=== PATIENT | female | born 1930 | race Caucasian/White ===

== ENCOUNTER 2017-09-03 16:41 | Inpatient (IN) ==
--- NOTE | 2017-09-03 17:14 | Emergency Department Report ---
General Adult HPI - General Chief complaint: Dizziness Stated complaint: facial drooping, slurred speach Time Seen by Provider: 09/03/17 17:05 Source: patient Mode of arrival: ambulatory Limitations: no limitations - History of Present Illness HPI narrative: 86-year-old female presents to the emergency department with a chief complaint of left-sided facial droop which began late yesterday per MD RN. Patient has also been feeling off balance for the past 2 days. She denies any pain or discomfort. She was at [facility] when her symptoms began. Symptoms have been persistent in nature since onset. No other complaints or associated symptoms. She does not note any exacerbating or remitting factors. Family arrives at bedside and also notes left-sided facial droop which is different from the patient's baseline health status. - Related Data Home Medications Medication Instructions Recorded Confirmed ALPRAZolam [Xanax] 0.5 mg PO HS PRN 09/03/17 09/03/17 Acetaminophen 650 mg PO QID 09/03/17 09/03/17 Amoxicillin 500 mg PO Q8H PRN 09/03/17 09/03/17 Aspirin 325 mg PO DAILY 09/03/17 09/03/17 Carbidopa/Levodopa 25/100 MG 1 tab PO HS 09/03/17 09/03/17 [Sinemet] Carboxymethyl/Glycerin/Poly80 1 drop EACH EYE BID 09/03/17 09/03/17 [Refresh Optive Advanced Drops] Carvedilol [Coreg] 3.125 mg PO BIDWM 09/03/17 09/03/17 Diclofenac [Voltaren] 1 applicatio TP BID 09/03/17 09/03/17 Docusate Sodium [Colace] 100 mg PO BID PRN 09/03/17 09/03/17 Famotidine [Pepcid] 20 mg PO BID 09/03/17 09/03/17 Fluoxetine HCl [Prozac] 40 mg PO DAILY 09/03/17 09/03/17 Furosemide [Lasix] 20 mg PO DAILY 09/03/17 09/03/17 Levothyroxine Tab [Synthroid] 50 mcg PO ACB 09/03/17 09/03/17 Losartan Potassium [Cozaar] 25 mg PO BID 09/03/17 09/03/17 Meclizine [Antivert] 12.5 mg PO DAILY 09/03/17 09/03/17 Meclizine [Antivert] 12.5 mg PO Q6H PRN 09/03/17 09/03/17 Melatonin 3 mg PO HS 09/03/17 09/03/17 Meloxicam [Mobic] 7.5 mg PO DAILY 09/03/17 09/03/17 Memantine [Namenda] 10 mg PO BID 09/03/17 09/03/17 Nystatin Powder [Mycostatin] 1 applicatio TP TID 09/03/17 09/03/17 Potassium Chloride [Klor-Con M10] 10 meq PO WB 09/03/17 09/03/17 Tramadol HCl [Ultram] 12.5 mg PO BID 09/03/17 09/03/17 Tramadol [Ultram] 25 mg PO TID PRN 09/03/17 09/03/17 Vit C/E/Zn/Coppr/Lutein/Zeaxan 1 cap PO BID 09/03/17 09/03/17 [Preservision Areds 2 Softgel] Allergies Allergy/AdvReac Type Severity Reaction Status Date / Time CRYSTAL Inhibitors Allergy Verified 09/03/17 17:02 Review of Systems Constitutional: Denies: fever, chills Eyes: Denies: eye pain, vision change ENT: Denies: ear pain, throat pain Cardiovascular: Denies: chest pain, palpitations Respiratory: Denies: cough, dyspnea Gastrointestinal: Denies: abdominal pain, nausea, vomiting, diarrhea Genitourinary: Denies: urgency, dysuria Musculoskeletal: Denies: back pain, arthralgia Integumentary: Denies: erythema, rash Neurological: Denies: headache, numbness Psychiatric: Denies: anxiety, depression Endocrine: Denies: fatigue, heat or cold intolerance Hematological/Lymphatic: Denies: easy bleeding, lymphadenopathy Allergic/Immunologic: Denies: facial swelling, urticaria PFSH Patient Stated Medical History Dementia Yes Macular Degeneration Yes Hypertension Yes Gastroesophageal Reflux Yes Disease Clinic Medical History Osteoarthritis of right knee (Chronic Medical) Chronic insomnia (Chronic Medical) Urinary tract infection without hematuria (Chronic Medical) Mild dementia (Chronic Medical) Acute confusion (Acute Medical) B12 deficiency (Chronic Medical) Depression (Chronic Medical) GERD (gastroesophageal reflux disease) (Chronic Medical) Hypertension, benign (Chronic Medical) Hypothyroidism (Chronic Medical) Lumbar disc disease (Chronic Medical) Macular degeneration (Chronic Medical) PAD (peripheral artery disease) (Chronic Medical) Right sided sciatica (Chronic Medical) Spinal stenosis (Chronic Medical) Type 2 diabetes mellitus (Chronic Medical) Surgical History: Orthopedic surgery. Family History: Family History Father , 89 Hip fracture Mother , 51 Cancer Brother Leukemia Maternal Aunt Type 2 diabetes mellitus Maternal Uncle Type 2 diabetes mellitus Daughter Breast cancer - Social History Smoking status: Never smoker Substance use type: does not use Alcohol intake frequency: does not drink Physical Exam - Limitations Limitations: no limitations - General General appearance: alert, in no apparent distress - Normal Exams: Head:: Normocephalic without trauma Eyes:: Pupils are PERRLA w/ EOMI, No scleral icterus, irritation, or foreign bodies noted ENMT:: No facial trauma, nasal exudates, pharyngeal erythema, or exudates are noted Dental: No fractured, loose, or missing teeth noted Neck:: Full range of motion, without adenopathy, JVD, bruits or thyromegaly Chest/Respirations:: Clear all le, with good airflow, and symmetry bilaterally Cardiovascular:: Regular rate and rhythm, without murmur or gallop, Pulses 2+ all extremities, capillary refill, <2 seconds all extremities Abdomen:: Bowel sounds positive, soft, non-tender, non-distended, no hepatosplenomegaly, masses or bruits noted Lymphatic:: No lymphadenopathy, or lymphedema noted Musculoskeletal:: No tenderness, or deformity noted, good range of motion, all extremities Integumentary:: No rashes, hives, or bruising noted, hair and nails, without abnormality Neurological:: Patient is alert (Alert and oriented x 3. CN 2-12 intact except for mild L facial droop. Sensation intact. Normal strength. Normal motor. Normal coordination. Normal speech. Absent Babinski bilaterally. Reflexes 2/ 4 in all extremities. Gait slow. ), and oriented, cranial nerves, motor/sensory /cerebellar, exams w/o gross deficits, to observation Psychiatric:: Patient exhibits, appropriate attention, emotion and affect Course Vital Signs Temperature 97.9 F 09/03/17 16:45 Pulse Rate 67 09/03/17 16:45 Respiratory Rate 18 09/03/17 16:45 Blood Pressure 165/92 H 09/03/17 16:45 Pulse Oximetry 94 09/03/17 16:45 Temperature 97.6 F 09/04/17 15:22 Pulse Rate 67 09/04/17 16:00 Respiratory Rate 18 09/04/17 15:22 Blood Pressure 155/74 H 09/04/17 15:22 Pulse Oximetry 96 09/04/17 15:22 Medical Decision Making - MDM Narrative Medical decision making narrative: Labs / imaging were discussed in detail with the patient and family and questions are answered. Family arrives at bedside and facial droop on the left is noted by family as a change from patient's baseline health. Patient has taken 325 mg of aspirin by mouth 1 prior to arrival to the emergency department today. She was given 500 mL normal saline intravenously. Patient is discussed with Dr. Ghotra and will be admitted to rule out CVA with left- sided facial droop. Patient and family are in agreement with the current plan of management. Patient is admitted to the hospital in improved condition. No further orders from accepting physician who is in agreement with the current plan of management. Further antiplatelet therapy will be left to the discretion of the hospitalist at this time. Patient is admitted to the service of the hospitalist in improved condition. Patient was started on Plavix 300 mg po x 1 and Simvastatin 40 mg po x 1 at the request of Dr. Baldev Sorenson the hospitalist who accepted the patient for admission to the hospital as Dr. Ghotra was going off shift. She was not a candidate for TPA as symptoms began outside the window for therapy and her NIH -1. - Differential Diagnosis CVA, TIA, UTI, Dehydration, Metabolic Disorder - Lab Data Result diagrams: 09/04/17 04:21 09/04/17 04:21 Lab Results 09/03/17 09/03/17 09/03/17 Range/Units 17:24 17:29 17:29 WBC 8.0 (4.5-11.0) T/MM3 RBC 4.51 (4.00-5.20) M/MM3 Hgb 13.5 (12-16) GM/DL Hct 42.0 (36-46) % MCV 93.1 (80-100) UM3 MCH 29.9 (26-34) UUG MCHC 32.1 (31-37) GM/DL RDW Std Deviation 46.2 (36.9-50.2) FL Plt Count 207 (130-400) T/MM3 MPV 10.2 (9.4-12.4) UM3 Immature Gran % (Auto) 0.4 (0.0-0.5) % Neut % (Auto) 57.9 (33-66) % Lymph % (Auto) 31.0 (23-45) % [place] % (Auto) 8.1 (0-9.0) % Eos % (Auto) 1.8 (0-4) % Baso % (Auto) 0.8 (0-2) % Neut # (Auto) 4.6 (1.8-7.7) T/MM3 Lymph # (Auto) 2.5 (1-4.8) T/MM3 [place] # (Auto) 0.7 (0-0.8) T/MM3 Eos # (Auto) 0.1 (0-0.5) T/MM3 Baso # (Auto) 0.1 (0-0.2) T/MM3 Abs Immat Gran (auto) 0.03 (0.00-0.03) T/MM3 INR (0.99-1.21) APTT (24-36) SEC Turbidity < 20 (0-20) Sodium 142 (134-144) MEQ/L Potassium 4.0 (3.6-5) MEQ/L Chloride 107 (98-107) MEQ/L Carbon Dioxide 26 (22-30) MEQ/L Anion Gap 9 (5-15) MEQ/L BUN 19.0 H (7-17) MG/DL Creatinine 0.8 (0.7-1.2) MG/DL GFR Calculation 68 BUN/Creatinine Ratio 24 (6-26) RATIO Glucose 94 (65-110) MG/DL Hemoglobin A1c 5.3 (4.0-5.7) % Calculated Osmolality 275 (261-280) MOSM/KG Calcium 9.3 (8.4-10.2) MG/DL Total Bilirubin 0.30 (0.20-1.30) MG/DL Icterus Index < 2 (0-7) AST 22 (14-36) U/L ALT 31 (9-52) U/L Alkaline Phosphatase 77 (38-126) U/L Troponin I < 0.012 (0-0.12) ng/ml Total Protein 7.2 (6.3-8.2) G/DL Albumin 4.2 (3.5-5.0) G/DL Globulin 3.0 (2.4-3.6) G/DL Albumin/Globulin Ratio 1.4 (1.1-2.2) RATIO Triglycerides 249 H (35-135) MG/DL Cholesterol 179 (132-199) MG/DL LDL Cholesterol, Calc 90.2 (66-159) VLDL Cholesterol 49.8 H (0-28) MG/DL HDL Cholesterol 39 L (40-60) MG/DL Cholesterol/HDL Ratio 4.6 H (0-4.0) RATIO Specimen Hemolysis < 15 (0-25) Ur Collection Type Urine Color (YELLOW) Urine Clarity Urine pH (5.0-8.0) Ur Specific [place] (1.015-1.025) Urine Protein (NEGATIVE) Urine Glucose (UA) (NEGATIVE) Urine Ketones (NEGATIVE) Urine Occult Blood (NEGATIVE) Urine Nitrate (NEGATIVE) Urine Bilirubin (NEGATIVE) Urine Urobilinogen (NORMAL) EU/DL Ur Leukocyte Esterase (NEGATIVE) Urinalysis Comment 09/03/17 09/03/17 Range/Units 17:29 18:12 WBC (4.5-11.0) T/MM3 RBC (4.00-5.20) M/MM3 Hgb (12-16) GM/DL Hct (36-46) % MCV (80-100) UM3 MCH (26-34) UUG MCHC (31-37) GM/DL RDW Std Deviation (36.9-50.2) FL Plt Count (130-400) T/MM3 MPV (9.4-12.4) UM3 Immature Gran % (Auto) (0.0-0.5) % Neut % (Auto) (33-66) % Lymph % (Auto) (23-45) % [place] % (Auto) (0-9.0) % Eos % (Auto) (0-4) % Baso % (Auto) (0-2) % Neut # (Auto) (1.8-7.7) T/MM3 Lymph # (Auto) (1-4.8) T/MM3 [place] # (Auto) (0-0.8) T/MM3 Eos # (Auto) (0-0.5) T/MM3 Baso # (Auto) (0-0.2) T/MM3 Abs Immat Gran (auto) (0.00-0.03) T/MM3 INR 0.98 L (0.99-1.21) APTT 29.4 (24-36) SEC Turbidity (0-20) Sodium (134-144) MEQ/L Potassium (3.6-5) MEQ/L Chloride (98-107) MEQ/L Carbon Dioxide (22-30) MEQ/L Anion Gap (5-15) MEQ/L BUN (7-17) MG/DL Creatinine (0.7-1.2) MG/DL GFR Calculation BUN/Creatinine Ratio (6-26) RATIO Glucose (65-110) MG/DL Hemoglobin A1c (4.0-5.7) % Calculated Osmolality (261-280) MOSM/KG Calcium (8.4-10.2) MG/DL Total Bilirubin (0.20-1.30) MG/DL Icterus Index (0-7) AST (14-36) U/L ALT (9-52) U/L Alkaline Phosphatase (38-126) U/L Troponin I (0-0.12) ng/ml Total Protein (6.3-8.2) G/DL Albumin (3.5-5.0) G/DL Globulin (2.4-3.6) G/DL Albumin/Globulin Ratio (1.1-2.2) RATIO Triglycerides (35-135) MG/DL Cholesterol (132-199) MG/DL LDL Cholesterol, Calc (66-159) VLDL Cholesterol (0-28) MG/DL HDL Cholesterol (40-60) MG/DL Cholesterol/HDL Ratio (0-4.0) RATIO Specimen Hemolysis (0-25) Ur Collection Type Urine, clean catch Urine Color Yellow (YELLOW) Urine Clarity Clear Urine pH 6.0 (5.0-8.0) Ur Specific [place] 1.020 (1.015-1.025) Urine Protein Negative (NEGATIVE) Urine Glucose (UA) Negative (NEGATIVE) Urine Ketones Trace A (NEGATIVE) Urine Occult Blood Negative (NEGATIVE) Urine Nitrate Negative (NEGATIVE) Urine Bilirubin Negative (NEGATIVE) Urine Urobilinogen 0.2 (NORMAL) EU/DL Ur Leukocyte Esterase Negative (NEGATIVE) Urinalysis Comment Microscopic not ind. - Radiology Data CXR: No acute processes. CT Head: No acute processes. - EKG Data EKG #1 EKG results narrative: Sinus rhythm. 71 bpm. No STEMI. Disposition Clinical Impression: Facial droop Disposition: 02 To [facility] [place] Acute Care Condition: Improved Time of Disposition: 18:00 (Admit. Dr. Shin. ) - Seen By: physician
[2017-09-03] MEDS: SALINE FLUSH 10ml SYRINGE IVF PRN (17:33)
[2017-09-03] MEDS ORDERED: NS 1,000 ML IV ONE (18:21)
[2017-09-03] MEDS ORDERED: CLOPIDOGREL 75 MG TABLET PO ONE (18:45)
[2017-09-03] MEDS ORDERED: SIMVASTATIN 40 MG TABLET PO ONE (18:47)
[2017-09-03] MEDS ORDERED: LABETALOL 20mg/4ml INJECTION IVP PRN (20:24)
[2017-09-03] MEDS ORDERED: ACETAMINOPHEN 160mg/5ml ORAL LIQUID PO PRN (20:24)
[2017-09-03] MEDS ORDERED: INSULIN ASPART 100unit/ml INJECTION SQ PRN (20:24)
[2017-09-03] MEDS ORDERED: GLUCOSE ORAL GEL 40% 37.5gm PO PRN (20:24)
[2017-09-03] MEDS ORDERED: ALPRAZolam 0.5 MG TABLET PO PRN (20:24)
[2017-09-03] MEDS ORDERED: DEXTROSE 50% SYRINGE 50ml (1 AMP) IVP PRN (20:24)
[2017-09-03] MEDS: FAMOTIDINE 20 MG TABLET PO SCH (22:26)
--- NOTE | 2017-09-03 23:47 | History & Physical Report ---
History of Present Illness Date: 09/04/17 Chief complaint: left facial weakness HPI: This is a 86 y/o female who lives at an assisted living setting in [facility]. The patient was noted today to have left facial weakness and onset of balance problems. The patient sx started maybe around 3:30 pm today. The local MD r/c that the pateint be transported to the ED for further evaluation. The patient has a history of Parkinsons disease and mild dementia. The patient also is a diabetic. In the ED the patient does have mild left sided facial weakness. The patient apparently has been having some difficulty swallowing as well since yesterday. The neruo evaluation CT head was neg for acute CVA. An MRI of the head done 03/01 demonstrated only atrophy. The patient sx are reasonably stable. She does take a baby aspirin. The patient will be admitted for further neruo evaluation. Review of Systems Review of systems: no headache, no change in nvisoin, some difficulty swallowng, no neck or jaw pain, no chest pain, no cough, no congestion, no fever, chills or sweats, no abdomen pain, no nausea or vomiting, no change in bm, no urine sx, no other focal concerns except for the facial weakness and dsyphagia. Patient is right handed Past Medical History Clinic Medical History Osteoarthritis of right knee (Chronic Medical) Chronic insomnia (Chronic Medical) Urinary tract infection without hematuria (Chronic Medical) Mild dementia (Chronic Medical) Acute confusion (Acute Medical) B12 deficiency (Chronic Medical) Depression (Chronic Medical) GERD (gastroesophageal reflux disease) (Chronic Medical) Hypertension, benign (Chronic Medical) Hypothyroidism (Chronic Medical) Lumbar disc disease (Chronic Medical) Macular degeneration (Chronic Medical) PAD (peripheral artery disease) (Chronic Medical) Right sided sciatica (Chronic Medical) Spinal stenosis (Chronic Medical) Type 2 diabetes mellitus (Chronic Medical) Surgical History: Orthopedic surgery. Family History: Family History Father , 89 Hip fracture Mother , 51 Cancer Brother Leukemia Maternal Aunt Type 2 diabetes mellitus Maternal Uncle Type 2 diabetes mellitus Daughter Breast cancer Family History Updates: see above - Social History Smoking status: Never smoker Substance use type: does not use Alcohol intake frequency: does not drink Housing: assisted living facility Household members: none Current occupational status: retired Current occupational exposures/hazards: No Medications Home Medications Medication Instructions Recorded Confirmed Type ALPRAZolam [Xanax] 0.5 mg PO HS PRN 09/03/17 09/03/17 History Acetaminophen 650 mg PO QID 09/03/17 09/03/17 History Amoxicillin 500 mg PO Q8H PRN 09/03/17 09/03/17 History Aspirin 325 mg PO DAILY 09/03/17 09/03/17 History Carbidopa/Levodopa 25/100 MG 1 tab PO HS 09/03/17 09/03/17 History [Sinemet] Carboxymethyl/Glycerin/Poly80 1 drop EACH EYE BID 09/03/17 09/03/17 History [Refresh Optive Advanced Drops] Carvedilol [Coreg] 3.125 mg PO BIDWM 09/03/17 09/03/17 History Diclofenac [Voltaren] 1 applicatio TP BID 09/03/17 09/03/17 History Docusate Sodium [Colace] 100 mg PO BID PRN 09/03/17 09/03/17 History Famotidine [Pepcid] 20 mg PO BID 09/03/17 09/03/17 History Fluoxetine HCl [Prozac] 40 mg PO DAILY 09/03/17 09/03/17 History Furosemide [Lasix] 20 mg PO DAILY 09/03/17 09/03/17 History Levothyroxine Tab [Synthroid] 50 mcg PO ACB 09/03/17 09/03/17 History Losartan Potassium [Cozaar] 25 mg PO BID 09/03/17 09/03/17 History Meclizine [Antivert] 12.5 mg PO DAILY 09/03/17 09/03/17 History Meclizine [Antivert] 12.5 mg PO Q6H PRN 09/03/17 09/03/17 History Melatonin 3 mg PO HS 09/03/17 09/03/17 History Meloxicam [Mobic] 7.5 mg PO DAILY 09/03/17 09/03/17 History Memantine [Namenda] 10 mg PO BID 09/03/17 09/03/17 History Nystatin Powder [Mycostatin] 1 applicatio TP TID 09/03/17 09/03/17 History Potassium Chloride [Klor-Con M10] 10 meq PO WB 09/03/17 09/03/17 History Tramadol HCl [Ultram] 12.5 mg PO BID 09/03/17 09/03/17 History Tramadol [Ultram] 25 mg PO TID PRN 09/03/17 09/03/17 History Vit C/E/Zn/Coppr/Lutein/Zeaxan 1 cap PO BID 09/03/17 09/03/17 History [Preservision Areds 2 Softgel] Allergies Allergy/AdvReac Type Severity Reaction Status Date / Time CRYSTAL Inhibitors Allergy Verified 09/03/17 17:02 Exam Vital Signs: Temperature 97.9 F 09/03/17 16:45 Pulse Rate 70 09/03/17 19:35 Respiratory Rate 23 09/03/17 19:35 Blood Pressure 167/75 H 09/03/17 18:18 Pulse Oximetry 96 09/03/17 19:35 Telemetry Rhythm: Sinus Rhythm - Constitutional Present: no acute distress, well nourished, well developed, cooperative - Routine HEENT Exam Head: Present: normocephalic, atraumatic Eye: Present: EOMI, PERRL, conjunctivae pink ENT: Present: mucous membranes moist Comments: mild left sided weakness noted - Routine Respiratory Exam Present: CTA bilaterally - Routine Cardiovascular Exam Present: RRR, no murmur - Routine Abdominal Exam Present: soft, normoactive bowel sounds, non distended, non tender - Routine Extremities Exam Present: no edema, full ROM - Routine Back/Spine/Pelvis Exam Back/Spine: Present: full ROM - Routine Skin Exam Present: intact - Routine Neurological Exam Present: oriented X3, sensory deficit left sided facialweakness. visual examination normal, strength sl weak left upper extremity and left lower extremity. sensory intact. not able to check proprioception Results - Labs CBC & Chem 7: 09/04/17 04:21 09/04/17 04:21 - Imaging and Cardiology CT scan - head Additional comments: no acute process Assessment and Plan (1) CVA (cerebral vascular accident) Current visit: Yes Status: Acute (2) Mild dementia Current visit: No Status: Chronic (3) DM type 2 (diabetes mellitus, type 2) Current visit: Yes Status: Acute (4) Hypothyroid Current visit: Yes Status: Acute (5) GERD (gastroesophageal reflux disease) Current visit: Yes Status: Acute Assessment and Plan: 1. acute CVA acute POA: no doubt left sided facial weakness and left sided weakenss. MR of head, echo, tele, lipid, a1c, carotid US, aspirin, plavix, statin, 2. DM2 chronic POA: correctional plan 3. HTN chronic POA: permissive HTN 4. parkinson's ds: continue sinemet 5. mild demntial type unspecified chronic POA: to be aware of namemda 6. hypothroid chroinc POA; synthroid, check TSH 7. DVT ppx; SCd, lovenox DVT Prophylaxis: SCD's, Lovenox Resuscitation Status: Do Not Resuscitate - Time spent with patient Time with patient PN: 50 minutes - Physician Narrative Physician: Crystal Ghotra MD Narrative: Date: 09/04/2017 Time: 2:[address] Ghotra I've seen and examined the patient and reviewed the chart. I agree with the H&P above. Please see my additions below. Chief complaint is slurred speech and left facial droop History of present illness: Patient was seen earlier this afternoon. Her son DIANE Davies was in the room with her during the exam. The patient has difficulty with memory. She is not a good historian. Per her son, she was noted to have left facial droop and slurred speech yesterday and was brought into the emergency room. Here she had a CT head that showed no acute findings. The patient was admitted and started on Plavix. Currently, the patient's speech is fluent. She does have a little bit of left facial droop. Her son states her speech is back to normal. He states she has a little bit of left facial droop now but it is not as bad as yesterday. He states that when he was with her earlier this morning she was doing well and then she had about a 30 minute episode where she had more facial droop and slurred speech but it has improved at this time. The patient was evaluated by the physical therapist and occupational therapist who both recommended returning to her previous assisted living with home health. The patient was seen by speech therapy who recommended ground meat with gravy but otherwise regular diet and normal liquids. Currently the patient denies pain anywhere. She specifically denies headache or chest pain. She denies any palpitations. She denies any shortness of breath. She denies nausea or vomiting. She is eating and drinking well. She is urinating without difficulties. She has some chronic right leg pain that is unchanged. Review of systems is difficult to obtain as the patient has poor memory. Past medical history is reviewed and unchanged from above. Family history is reviewed Social history is reviewed. She lives in assisted living [facility]. Her son Samson his DPOA. The patient is DO NOT RESUSCITATE Medications are reviewed Allergies are reviewed Physical exam Afebrile, heart rate 68, pulse 16, blood pressure 171/72, O2 sat 94% on room air Gen. this is a well-developed well-nourished very pleasant female in no acute distress. She has mild to moderate memory decline. HEENT reveals sclerae to be anicteric, pupils are equal round and reactive, extraocular movements are intact. Oropharynx is moist. Neck is supple and carotids are silent. No JVD. Chest is clear to auscultation. Cardiovascular reveals a regular rate and rhythm without murmur. Abdomen is soft and nontender. Extremities are free of edema. Skin is warm and dry and without rashes. Psychiatric reveals a pleasant patient without anxiety. Affect is normal. Neurologic reveals cranial nerves II through XII to be intact other than some mild left facial droop. She has minimal slurred speech. Motor strength is 5 over 5 and equal in the upper and lower extremities. CT head yesterday revealed mild cortical atrophy. No evidence for acute cortical infarct, intracranial hemorrhage, or mass Chest x-ray yesterday showed no acute process MRI brain today read by [facility] shows a small focal acute/subacute infarct in the right brainstem. No intracranial hemorrhage or mass effect. Probable small meningioma in the left lateral vertex. Carotid Dopplers revealed no hemodynamically significant carotid stenosis Impression Acute/subacute infarct in the right brainstem without mass effect with resultant left facial droop and mild slurred speech Mild elevated blood pressure with history of hypertension Dementia Parkinson's disease Hypothyroidism GERD Plan The patient failed aspirin therapy. Will continue Plavix which was initiated yesterday. We'll start statin for hyperlipidemia and recent stroke Continue telemetry Neuro checks every 4 hours-call with changes. Await echocardiogram Up in chair for meals and walking halls with assist Possible discharge in 1-2 days if the patient is stable. Paperwork from the correction show her son Samson his DPOA and he does confirm this. Paperwork also shows that the patient is DO NOT RESUSCITATE and Samson confirms this as well. We'll change to DO NOT RESUSCITATE status on the computer. Discussed findings and plans at length with the patient's son. Discussed with case management. Hospital Course Summary Disclaimer: The visit summary below is not to be considered part of the above Progress Note.
[2017-09-04] MEDS: LEVOTHYROXINE 50 MCG TABLET PO SCH (06:11)
[2017-09-04 07:08] VITALS: BMI 34.4
[2017-09-04] MEDS ORDERED: SALINE FLUSH 10ml SYRINGE ONE (08:55)
[2017-09-04] MEDS ORDERED: ASPIRIN 325 MG TABLET PO SCH (09:00)
[2017-09-04] MEDS: FAMOTIDINE 20 MG TABLET PO SCH ×2 (10:34→20:05)
[2017-09-04] MEDS: CLOPIDOGREL 75 MG TABLET PO SCH (10:34)
[2017-09-04] MEDS ORDERED: PNEUMOCOCCAL 13 VACCINE 0.5ml INJECTION IM ONE (12:55)
--- NOTE | 2017-09-04 13:50 | CT Scan Report ---
Indication: Dizzy PROCEDURE: CT head/brain wo con: Encounter: Initial Comparison: 11/30/2011 Findings: There is mild prominence of the ventricles and sulci compatible with cortical atrophy. There is no mass, mass effect, or midline shift. No evidence for intracranial hemorrhage. No intra or extra-axial fluid collections. No evidence for depressed skull fracture. The included portions of the sinuses are clear. 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 IMPRESSION: Mild cortical atrophy. No evidence for acute cortical infarct, intracranial hemorrhage, or mass. Preliminary report was provided by Sherwin dixon .
--- NOTE | 2017-09-04 13:55 | XRay Report ---
Indication: dizziness PROCEDURE: XR chest 1V: Encounter: Initial Comparison: None. Findings: Heart size is normal. The lungs are clear. There is no focal opacity to suggest atelectasis or pneumonia. No mediastinal or hilar adenopathy. No pleural effusion. There is mild tortuosity of the descending thoracic aorta. Trachea is midline. There is no significant degenerative changes of the thoracic spine. IMPRESSION: No acute process. .
[2017-09-04] MEDS ORDERED: PNEUMOCOCCAL VAC ADMIN CHARGE INJ ONE (14:00)
--- NOTE | 2017-09-04 14:40 | Magnetic Resonance Report ---
Indication: cva PROCEDURE: MR head/brain wo con: Encounter: Initial Comparison: None. Technique: Multiplanar, multisequence, MR imaging of the head without contrast was acquired. FINDINGS: There is moderate cortical atrophy with moderate periventricular and subcortical white matter changes most commonly associated with small vessel ischemic disease. There is a small punctate area of restricted diffusion in the right rita compatible with a small lacunar infarct. The flow voids within the basilar vessels appear well-preserved. There are no cortical areas of restricted diffusion on diffusion weighted imaging to suggest an acute infarct. There is no evidence of an intracranial mass lesion, intracranial hemorrhage, or hydrocephalus. The visualized portions of the orbits, calvarium, paranasal sinuses, and skull base demonstrate no significant abnormality. IMPRESSION: Acute lacunar infarct in the right rita. Generalized cortical atrophy with periventricular and subcortical white matter disease. .
[2017-09-04] MEDS ORDERED: DOCUSATE SODIUM 100 MG CAPSULE PO PRN (14:41)
[2017-09-04] MEDS ORDERED: TRAMADOL 50 MG TABLET PO PRN (14:41)
--- NOTE | 2017-09-04 14:44 | Ultrasound Report ---
Indication: cva PROCEDURE: US carotid doppler BI: Encounter: Initial Comparison: None. TECHNIQUE: Nieves-scale, color flow, and spectral pulsed Doppler imaging of the carotid and vertebral arteries of both sides of the neck was performed with segmental recordings of velocity spectra. FINDINGS: There is moderate plaque in the bulb region bilaterally. Longitudinal color flow images reveal all vessels to be patent with a normal flow direction. The velocity spectra are of normal shape without flow acceleration or spectral broadening. The following peak systolic and end-diastolic velocities were measured (units given in cm/s): Right Common Carotid: 81 Prox Internal Car: 83/19 Mid Internal Carotid: 87/21 Dist Internal Carotid: 78/15 External Carotid: 98 Vertebral Artery: 49 Systolic Ratio: 1.0 Left Common Carotid: 101 Prox Internal Car: 62/9.6 Mid Internal Carotid: 84/17 Dist Internal Carotid: 66/18 External Carotid: 77 Vertebral Artery: 53 Systolic Ratio: 0.8 IMPRESSION: Normal to mild internal carotid artery stenosis, bilaterally, with estimated percent stenosis between 0% and 50% using NASCET criteria adapted to duplex ultrasound. Bilateral patent antegrade vertebral arteries. .
[2017-09-04] MEDS: FLUoxetine 20 MG CAPSULE PO SCH (15:36)
[2017-09-04] MEDS: CARVEDILOL 3.125 MG TABLET PO SCH (18:06)
[2017-09-04] MEDS: ACETAMINOPHEN 325 MG TABLET PO SCH ×2 (18:07→20:05)
--- NOTE | 2017-09-04 18:35 | Echocardiogram ---
DATE OF PROCEDURE 09/04/2017 This is a two-dimensional echo with spectral Doppler, color flow and bubble stud. It was obtained in a patient with TIA and stroke. Left atrial dimension is at the upper limits of normal. Left ventricular end- diastolic dimension is normal. Left ventricular wall thickness is normal. LV systolic function is normal with ejection fraction of 65%. Right atrium is normal. Right ventricle is normal. Aortic root dimension is normal. Mitral valve annulus is calcified. Mitral valve leaflets are sclerotic with mild mitral regurgitation. Aortic valve shows fibrocalcific changes with no stenosis or insufficiency. Tricuspid valve shows mild tricuspid regurgitation with mild pulmonary hypertension with estimated pulmonary artery systolic pressure of 35. Pulmonary valve shows mild pulmonary insufficiency. There is no pericardial effusion. Grossly, there is no intracardiac thrombus or mass. Agitated saline was injected which showed no evidence of cuehh-xe-uaej shunt. IMPRESSION 1. Grossly, no intracardiac thrombus or mass. 2. No evidence of qymfv-bc-ldqh shunt using agitated saline. 3. Normal LV systolic function with ejection fraction of about 65%. 4. Mitral annulus calcification and mitral sclerosis with mild mitral regurgitation. 5. Aortic sclerosis. 6. Mild tricuspid regurgitation with mild pulmonary hypertension with estimated pulmonary artery systolic pressure of 35. 7. Mild pulmonary insufficiency. MTDD
[2017-09-04] MEDS: REFRESH CLASSIC Eye Drops 0.4ml EACH EYE SCH (20:04)
[2017-09-04] MEDS: MELATONIN 1 MG TABLET PO SCH (20:05)
[2017-09-04] MEDS: MEMANTINE 10 MG TABLET PO SCH (20:05)
[2017-09-04] MEDS: SIMVASTATIN 40 MG TABLET PO SCH (20:05)
[2017-09-04] MEDS: TRAMADOL 50 MG TABLET PO SCH (20:06)
[2017-09-05] MEDS: LEVOTHYROXINE 50 MCG TABLET PO SCH (05:30)
[2017-09-05] MEDS: REFRESH CLASSIC Eye Drops 0.4ml EACH EYE SCH ×2 (09:47→21:03)
[2017-09-05] MEDS: MEMANTINE 10 MG TABLET PO SCH ×2 (09:47→21:03)
[2017-09-05] MEDS: CARVEDILOL 3.125 MG TABLET PO SCH (09:48)
[2017-09-05] MEDS: ACETAMINOPHEN 325 MG TABLET PO SCH ×4 (09:48→21:03)
[2017-09-05] MEDS: TRAMADOL 50 MG TABLET PO SCH ×2 (09:48→21:04)
[2017-09-05] MEDS: FUROSEMIDE 20 MG TABLET PO SCH (09:48)
[2017-09-05] MEDS: FLUoxetine 20 MG CAPSULE PO SCH (09:48)
[2017-09-05] MEDS: CLOPIDOGREL 75 MG TABLET PO SCH (09:48)
[2017-09-05] MEDS: FAMOTIDINE 20 MG TABLET PO SCH ×2 (09:49→21:03)
[2017-09-05] MEDS: ENOXAPARIN 40 MG/0.4 ML INJECTION SQ SCH (09:49)
--- NOTE | 2017-09-05 12:29 | Progress Note ---
- Date 09/05/17 Subjective: Jayden is seen today in follow up. Reports feeling very well. Minimal left sided weakness. Denies difficulty with speech or swallow. No facial droop. Denies cough, but does reports some nasal congestion and drainage. Denies fever. Does not feel unwell. Onset of URI sx were last night. No other acute c/o reported. Objective Vital signs: Temperature 98.4 F 09/05/17 08:00 Pulse Rate 69 09/05/17 08:00 Respiratory Rate 18 09/05/17 08:00 Blood Pressure 160/72 H 09/05/17 08:00 Pulse Oximetry 95 09/05/17 08:00 Rhythm: Normal Sinus Rhythm, Bundle Branch Block Height/Weight/BMI: Height 1.6 m Weight 87.9 kg Body Mass Index 34.4 - Constitutional Present: no acute distress, well developed, obese, cooperative - Routine HEENT Exam Head: Present: normocephalic, atraumatic Eye: Present: EOMI, PERRL, normal accommodation ENT: Present: mucous membranes moist - Routine Respiratory Exam Present: decreased breath sounds, CTA bilaterally. Absent: dyspnea, rales, rhonchi, wheezes - Routine Cardiovascular Exam Present: RRR, S1, S2, no murmur - Routine Abdominal Exam Present: soft, normoactive bowel sounds, non distended, non tender - Routine Extremities Exam Present: no edema, non tender - Routine Musculoskeletal Exam Musculoskeletal: Present: no clubbing or cyanosis, moving extremities well - Routine Skin Exam Present: intact, dry, warm - Routine Neurological Exam Present: alert, oriented X3, moving all extremities. Absent: sensory deficit Inpatient Care Manager Rn are fairly equal. No obvious facial droop. No speech deficits. - Routine Psychiatric Exam Present: normal affect, cooperative, good insight Results - Labs CBC & Chem 7: 09/04/17 04:21 09/04/17 04:21 - Echocardiogram Echocardiogram: IMPRESSION 1. Grossly, no intracardiac thrombus or mass. 2. No evidence of hzqjy-gt-exhn shunt using agitated saline. 3. Normal LV systolic function with ejection fraction of about 65%. 4. Mitral annulus calcification and mitral sclerosis with mild mitral regurgitation. 5. Aortic sclerosis. 6. Mild tricuspid regurgitation with mild pulmonary hypertension with estimated pulmonary artery systolic pressure of 35. 7. Mild pulmonary insufficiency. - Impressions Carotid doppler IMPRESSION: Normal to mild internal carotid artery stenosis, bilaterally, with estimated percent stenosis between 0% and 50% using NASCET criteria adapted to duplex ultrasound. Bilateral patent antegrade vertebral arteries. . - Imaging and Cardiology MRI - head Additional comments: MRI IMPRESSION: Acute lacunar infarct in the right rita. Generalized cortical atrophy with periventricular and subcortical white matter disease. . Assessment and Plan (1) Mild dementia Current visit: No Status: Chronic (2) CVA (cerebral vascular accident) Current visit: Yes Status: Acute (3) Hypothyroid Current visit: Yes Status: Acute (4) GERD (gastroesophageal reflux disease) Current visit: Yes Status: Acute Assessment and Plan: Impression: Acute Lacunar Infarct HTN Parkinson's Dz. Mild Dementia Hypothyroid Hyperlipidemia Plan: 09/05/17 MRI shows small lacunar infarct. She was on Full Strength ASA at home. Changed to PO plavix. Continue Zocor for HLD. She has been seen by PT/OT/ST with [facility] Patient does have some mild nasal congestion- no cough or fever. Given high prevalence of influenza, will assess a rapid swab. If sx. progress, will need to get resp. viral PCR. swab. BP is a bit elevated- will mildly increase Coreg. Avoid excessive lowering. BG remains well controlled on current. A1c 5.3. No diagnosis of DM2 per prior progress notes. Continue supportive care. Potential DC back to [place] on Wednesday. 09/05/2017-2:30 PM-I reviewed this chart, the patient history, and the CULINARY CHEF's/PA 's documented findings as above. We discussed and formulated the assessment and plan as above with the additions below.-Dr. Ghotra Patient is seen this afternoon in her room accompanied by her son. She states she has some phlegm in her throat but otherwise feels okay. She felt tired when up and walking in the hallway with the nurse. She feels like she is talking okay and swallowing okay. Her son has not noticed any recurrence of slurred speech. She did have slurred speech on admission that resolved and then came again yesterday morning and resolved. She denies having any cough but just has phlegm in her throat. She denies any sore throat or runny nose. She denies any shortness of breath or pain. On exam she is alert and in no acute distress. HEENT reveals sclerae to be anicteric and pupils are equal. Oropharynx is moist. Neck is supple. Chest is clear to auscultation. Cardiovascular reveals a regular rate and rhythm. Abdomen is soft and nontender. Extremities are free of edema. Echocardiogram reveals no significant abnormalities. Telemetry shows sinus rhythm without ectopy Assessment and plan Acute lacunar infarct. Treat with Plavix and statin. Agree with increase of Coreg. Consider restarting her usual blood pressure medication tomorrow. Probable dismissal tomorrow back to assisted living with home health for PT and OT, as long she does not have any recurrence of symptoms. Regarding her phlegm in her throat, will give guaifenesin. Influenza A and B PCR testing was negative. The patient's son was here and updated. DVT Prophylaxis: Lovenox GI Prophylaxis: other (Famotidine) Resuscitation Status: Do Not Resuscitate - Physician Narrative Physician: Crystal Ghotra MD Narrative: Date: 09/05/17 Time: 1225 Hospital Course Summary Disclaimer: The visit summary below is not to be considered part of the above Progress Note. Hospital Course: Impression: Acute Lacunar Infarct HTN Parkinson's Dz. Mild Dementia Hypothyroid Hyperlipidemia Plan: 09/05/17 MRI shows small lacunar infarct. She was on Full Strength ASA at home. Changed to PO plavix. Continue Zocor for HLD. She has been seen by PT/OT/ST with DC recommendations [facility]. Patient does have some mild nasal congestion- no cough or fever. Given high prevalence of influenza, will assess a rapid swab. If sx. progress, will need to get resp. viral PCR. swab. BP is a bit elevated- will mildly increase Coreg. Avoid excessive lowering. BG remains well controlled on current. A1c 5.3. No DM2 Continue supportive care. Potential DC back to [place] on Wednesday.
[2017-09-05] MEDS: GUAIFENESIN LA 600 MG TABLET PO SCH ×2 (15:46→21:04)
[2017-09-05] MEDS: CARVEDILOL 6.25 MG TABLET PO SCH (16:48)
[2017-09-05] MEDS: SALINE FLUSH 10ml SYRINGE IVF PRN (21:02)
[2017-09-05] MEDS: SIMVASTATIN 40 MG TABLET PO SCH (21:03)
[2017-09-05] MEDS: MELATONIN 1 MG TABLET PO SCH (21:04)
[2017-09-06] MEDS: SALINE FLUSH 10ml SYRINGE IVF PRN (05:21)
[2017-09-06] MEDS: LEVOTHYROXINE 50 MCG TABLET PO SCH (05:38)
[2017-09-06 07:52] VITALS: BP 126/83; RESP 28; TEMP 98.4; O2SAT 92
[2017-09-06] MEDS: FUROSEMIDE 20 MG TABLET PO SCH (09:04)
[2017-09-06] MEDS: MEMANTINE 10 MG TABLET PO SCH (09:04)
[2017-09-06] MEDS: ACETAMINOPHEN 325 MG TABLET PO SCH ×2 (09:04→12:57)
[2017-09-06] MEDS: ENOXAPARIN 40 MG/0.4 ML INJECTION SQ SCH (09:04)
[2017-09-06] MEDS: FAMOTIDINE 20 MG TABLET PO SCH (09:04)
[2017-09-06] MEDS: CARVEDILOL 6.25 MG TABLET PO SCH (09:05)
[2017-09-06] MEDS: REFRESH CLASSIC Eye Drops 0.4ml EACH EYE SCH (09:05)
[2017-09-06] MEDS: CLOPIDOGREL 75 MG TABLET PO SCH (09:05)
[2017-09-06] MEDS: FLUoxetine 20 MG CAPSULE PO SCH (09:05)
[2017-09-06] MEDS: GUAIFENESIN LA 600 MG TABLET PO SCH (09:05)
[2017-09-06] MEDS: TRAMADOL 50 MG TABLET PO SCH (09:06)
[2017-09-06 09:44] VITALS: PULSE 71
--- NOTE | 2017-09-06 09:45 | XRay Report ---
Indication: cough and mild wheeze in left base XR chest 1V: Comparison: 09/03/2017 Technique: Single AP portable upright chest Findings: Patient should similar appearance the previous study with a mildly elevated right diaphragm. Heart size is stable as is a central vascularity and mediastinum. No acute new pulmonary abnormality seen. Impression: Stable chest with no acute new abnormality .
--- NOTE | 2017-09-06 10:46 | Progress Note ---
- Date 09/06/17 Subjective: The patient was seen this morning in her room on the medical floor. She states she is feeling well. She has a minimal cough with phlegm in her throat. She denies any shortness of breath. She denies any pain anywhere. She has been up walking with the nurse. Her nurse states that she has to hold onto her gait belt because she thinks she is unstable walking. We will ask physical therapy to reevaluate the patient. The patient denies any new weakness. She is eating and drinking well. She is urinating without difficulties. She has not had any fevers. Objective Vital signs: Temperature 98.4 F 09/06/17 07:49 Pulse Rate 71 09/06/17 08:30 Respiratory Rate 28 H 09/06/17 07:49 Blood Pressure 126/83 09/06/17 07:49 Pulse Oximetry 92 09/06/17 07:49 Rhythm: Normal Sinus Rhythm, Bundle Branch Block Height/Weight/BMI: Height 1.6 m Weight 86.8 kg Body Mass Index 34.4 Comments: GEN-alert, pleasant, mildly forgetful, no acute distress HEENT-sclera anicteric, pupils are equal, oropharynx is moist NECK-supple CV-regular rate and rhythm CHEST-mild basilar wheezes ABD-soft, nontender with positive bowel sounds -no Wilson EXT-no edema NEURO-she has mild left facial droop at the corners of her mouth with resting. There is just minimal droop when she smiles. Speech does not sound slurred. She has mild hearing loss. Cranial nerves II through XII are otherwise intact. Motor strength feels equal in the upper and lower extremities. SKIN-warm and dry and without rashes Results - Labs CBC & Chem 7: 09/06/17 04:08 09/06/17 04:08 - Impressions Chest x-ray today reveals stable chest with no new acute abnormalities I have viewed the films and agree. Assessment and Plan (1) Mild dementia Current visit: No Status: Chronic (2) CVA (cerebral vascular accident) Current visit: Yes Status: Acute (3) Hypothyroid Current visit: Yes Status: Acute (4) GERD (gastroesophageal reflux disease) Current visit: Yes Status: Acute Assessment and Plan: Impression: Acute Lacunar Infarct-slurred speech (resolved), mild left facial droop, gait instability HTN Parkinson's Dz. Mild Dementia Hypothyroid Hyperlipidemia Plan I did ask physical therapy to reevaluate the patient's gait today and they do not think she is stable enough to return to assisted living. Will discuss with case management whether to try for detention back to [facility] versus inpatient rehabilitation. If either of those can be arranged for today, I do think the patient is stable for dismissal to either detention or inpatient rehabilitation. Continue on Plavix and Zocor to prevent recurrent strokes. Continue off of aspirin. Coreg was increased yesterday from her usual dose. Cozaar remains on hold. Could continue current Coreg dose and remain off Cozaar and monitor blood pressures. Chest x-ray was obtained today regarding mild wheezes heard on chest exam and with her cough. Chest x-ray did not show any new findings. Continue on guaifenesin for cough with phlegm. Influenza A and B testing was negative. Discussed earlier today with the patient's son. I did inform him that physical therapy would be seeing the patient to determine whether she was safe to return to assisted living or whether she would need a higher level of care. I will ask case management to get in contact with him about detention versus inpatient rehabilitation. Discussed with YRN Da Silva. DVT Prophylaxis: SCD's Resuscitation Status: Do Not Resuscitate - Physician Narrative Narrative: Date: 09/06/17 Time: 1042 Hospital Course Summary Disclaimer: The visit summary below is not to be considered part of the above Progress Note. Hospital Course: Impression: Acute Lacunar Infarct HTN Parkinson's Dz. Mild Dementia Hypothyroid Hyperlipidemia Plan: 09/05/17 MRI shows small lacunar infarct. She was on Full Strength ASA at home. Changed to PO plavix. Continue Zocor for HLD. She has been seen by PT/OT/ST with DC recommendations to return home to [facility]. Patient does have some mild nasal congestion- no cough or fever. Given high prevalence of influenza, will assess a rapid swab. If sx. progress, will need to get resp. viral PCR. swab. BP is a bit elevated- will mildly increase Coreg. Avoid excessive lowering. BG remains well controlled on current. A1c 5.3. No DM2 Continue supportive care. Potential DC back to [place] on Wednesday.
--- NOTE | 2017-09-06 13:56 | Discharge Summary ---
Discharge Information Date of admission: 09/03/17 18:54 Anticipated date of discharge: 09/06/17 Attending Physician: Crystal Ghotra MD Primary care physician: Uvaldo Portillo MD - Discharge Diagnosis (1) CVA (cerebral vascular accident) Status: Acute DISCHARGE DIAGNOSIS: Acute Lacunar Infarct-slurred speech (resolved), mild left facial droop, gait instability Associated Chronic Conditions: HTN Parkinson's Disease Mild Dementia Hypothyroid Hyperlipidemia - Procedures Procedures: Carotid Doppler: Normal to mild internal carotid artery stenosis bilaterally between 0 and 50%. Echocardiogram IMPRESSION 1. Grossly, no intracardiac thrombus or mass. 2. No evidence of ighqs-sm-posi shunt using agitated saline. 3. Normal LV systolic function with ejection fraction of about 65%. 4. Mitral annulus calcification and mitral sclerosis with mild mitral regurgitation. 5. Aortic sclerosis. 6. Mild tricuspid regurgitation with mild pulmonary hypertension with estimated pulmonary artery systolic pressure of 35. 7. Mild pulmonary insufficiency. - Laboratory Labs: 09/06/17 04:08 09/06/17 04:08 - Radiology Radiology: Chest x-ray: No acute process. Repeat chest x-ray on 09/06/[address]: Mild cortical atrophy. No acute infarct, hemorrhage or mass. Brain MRI: Acute lacunar infarct in the right rita. Generalized cortical atrophy with periventricular and subcortical white matter disease. History of Present Illness HPI: This is a 86 y/o female who lives at an assisted living setting in [facility]. The patient was noted today to have left facial weakness and onset of balance problems. The patient sx started maybe around 3:30 pm today. The local MD r/c that the patient be transported to the ED for further evaluation. The patient has a history of Parkinson disease and mild dementia. The patient also is a diabetic. In the ED the patient does have mild left sided facial weakness. The patient apparently has been having some difficulty swallowing as well since yesterday. The neuro evaluation CT head was neg for acute CVA. An MRI of the head done 03/01 demonstrated only atrophy. The patient sx are reasonably stable. She does take a baby aspirin. The patient will be admitted for further neuro evaluation. Objective Vital signs: Temperature 98.4 F 09/06/17 07:49 Pulse Rate 71 09/06/17 08:30 Respiratory Rate 28 H 09/06/17 07:49 Blood Pressure 126/83 09/06/17 07:49 Pulse Oximetry 92 09/06/17 07:49 Rhythm: Normal Sinus Rhythm, Bundle Branch Block Height/Weight/BMI: Height 1.6 m Weight 86.8 kg Body Mass Index 34.4 Hospital Course This is a general summary of the patient's hospital course. For more details refer to the complete medical record. Hospital course: Mrs. Mejia was admitted under the telehospitalist service on 09/04/17 for acute stroke with left-sided facial weakness, slurred speech, and left upper extremity weakness. Stroke workup was obtained, and since she failed ASA therapy she was started on Plavix. A statin was started for hyperlipidemia. MRI confirmed acute ischemic stroke. Her losartan was initially held to allow for permissive hypertension in the setting of acute stroke. Her symptoms began to improve, and on 09/05/17. Her speech was not slurred. Her labs were monitored over her hospital course, and remained stable. Hemoglobin A1c was normal at 5.3% . She had nasal congestion on 09/05/17 and an influenza swab was obtained. This was negative. She was slightly wheezing on 09/06/17 and a chest x-ray was done. This too was negative. She was evaluated by PT and OT, who recommended IRU vs. care home. Her functional status was actually too advanced to be accepted to IRU, but she was able to be discharged to [facility] on 09/06/17. Both the patient and her son were agreeable to discharge to care home. Time spent with patient: discharge greater than 30 minutes Discharge Plan - Discharge Disposition Discharge Date: 09/06/17 Disposition: 03 To SNU Not [facility] (SNF) *Condition: Improved Reason For Visit (Visit label in EMR): subacute left side cva - Discharge Medications *Discharge Medications: New Clopidogrel [Plavix] 75 mg PO DAILY #30 tab Simvastatin [Zocor] 40 mg PO HS #30 tab Continue Meclizine [Antivert] 12.5 mg PO Q6H PRN PRN Reason: Dizziness Levothyroxine Tab [Synthroid] 50 mcg PO ACB Docusate Sodium [Colace] 100 mg PO BID PRN PRN Reason: Constipation Melatonin 3 mg PO HS Carbidopa/Levodopa 25/100 MG [Sinemet] 1 tab PO HS Nystatin Powder [Mycostatin] 1 applicatio TP TID Fluoxetine HCl [Prozac] 40 mg PO DAILY Carboxymethyl/Glycerin/Poly80 [Refresh Optive Advanced Drops] 1 drop EACH EYE BID Furosemide [Lasix] 20 mg PO DAILY Losartan Potassium [Cozaar] 25 mg PO BID Carvedilol [Coreg] 3.125 mg PO BIDWM Memantine [Namenda] 10 mg PO BID Meloxicam [Mobic] 7.5 mg PO DAILY Acetaminophen 650 mg PO QID Vit C/E/Zn/Coppr/Lutein/Zeaxan [Preservision Areds 2 Softgel] 1 cap PO BID Famotidine [Pepcid] 20 mg PO BID Diclofenac [Voltaren] 1 applicatio TP BID ALPRAZolam [Xanax] 0.5 mg PO HS PRN #14 tab PRN Reason: Anxiety Tramadol HCl [Ultram] 12.5 mg PO BID #10 tab Amoxicillin 500 mg PO Q8H PRN PRN Reason: Dental Pain Potassium Chloride [Klor-Con M10] 10 meq PO WB Meclizine [Antivert] 12.5 mg PO DAILY Tramadol [Ultram] 25 mg PO TID PRN #20 tab PRN Reason: Pain Discontinued Aspirin 325 mg PO DAILY - Discharge Packet/Instructions *Diet: Consistent carbohydrate diet, chopped meats and soft consistency, regular liquids. *Activity: PT and OT evaluations. *Pain Management/Treatment: Tylenol and tramadol as prescribed. *Wound Care: Not applicable *Expected Signs/Symptoms: Left arm weakness, gait instability, fatigue from hospitalization. *Notify Physician if: New neurologic symptoms such as facial droop, confusion, unilateral weakness, poor coordination, or severe headache. Notify the physician for any falls, chest pain, difficulty breathing or signs of infection. *During Business Hours Contact: Dr. Uvaldo Portillo's office *After Business Hours Contact: The on-call provider for Dr. Portillo *Pending Lab/Results: No Pending Lab - Referrals/Follow Up *Referrals/Follow Up: Uvaldo Portillo MD [Family Provider] - 1 Week - Patient Handouts Patient Handouts: Ischemic Stroke (GEN) - Dismissal Complete Discharge Instructions are:: Complete Physician Narrative - Narrative Attestation Narrative: Date: 09/06/17 Time: 2:50pm Dr. Ghotra The patient was seen this morning in her room on the medical floor. She states she is feeling well. She has a minimal cough with phlegm in her throat. She denies any shortness of breath. She denies any pain anywhere. She has been up walking with the nurse. Her nurse states that she has to hold onto her gait belt because she thinks she is unstable walking. We will ask physical therapy to reevaluate the patient. The patient denies any new weakness. She is eating and drinking well. She is urinating without difficulties. She has not had any fevers. GEN-alert, pleasant, mildly forgetful, no acute distress HEENT-sclera anicteric, pupils are equal, oropharynx is moist NECK-supple CV-regular rate and rhythm CHEST-mild basilar wheezes ABD-soft, nontender with positive bowel sounds -no Wilson EXT-no edema NEURO-she has mild left facial droop at the corners of her mouth with resting. There is just minimal droop when she smiles. Speech does not sound slurred. She has mild hearing loss. Cranial nerves II through XII are otherwise intact. Motor strength feels equal in the upper and lower extremities. SKIN-warm and dry and without rashes Overall, the patient is doing well. She has had no new stroke symptoms. She is tolerating Plavix and initiation of statin. Her gait was noted to be somewhat unstable and PT and OT did recommend either care home or IRU. She has been accepted to care home. I do believe she is stable for discharge today.
--- NOTE | 2017-09-06 14:18 | Extended Care Facility Orders ---
<Margareth Villasenor - Last Filed: 09/06/17 14:17> Admission Orders Admit to:: Prison, Other Allergies/Adverse Reactions: Allergies CRYSTAL Inhibitors Allergy (Verified 09/03/17 17:02) Admitting Diagnosis: subacute left side cva Admitting Physician: Crystal Ghotra MD Attending Physician: Crystal Ghotra MD Code Status: Do Not Resuscitate Anticiapted Length of Stay: 30 days or less Rehab Potential: fair Rehab Prognosis: fair Diet: Consistent carbohydrate diet, chopped meats and soft consistency, regular liquids. 2000 kcal/day. May use Facility Protocol or Standing Orders: Yes Evaluations/Treatment: Speech, PT, OT Prison Certification: I certify that SNF services are required to be given on an Inpatient basis because of the patient's need for halfway care on a continuing basis for the condition(s) for which she received inpatient hospital services prior to her transfer to the SNF. SNF inpatient care is necessary for the following reasons: Indication for Prison: Neuro Assessment - Additional Information In Event of Arrest: Do Not Start CPR Resident is Aware of Diagnosis: Yes Referrals: Uvaldo Portillo MD [Family Provider] - 1 Week <Crystal Ghotra - Last Filed: 09/06/17 14:48> Admission Orders Admitting Diagnosis: subacute left side cva Admitting Physician: Crystal Ghotra MD Attending Physician: Crystal Ghotra MD Code Status: Do Not Resuscitate Diet: 09/04/17 Lunch Consistent Carbohydrate Diet [DIET] Calorie Level: 1999 Fluid Consistency: REGLIQU Food Consistency: SOFT Comment: chopped meats 09/06/17 Dinner Consistent Carbohydrate Diet [DIET] Calorie Level: 1999 Fluid Consistency: REGLIQU Food Consistency: SOFT Comment: chopped meats Prison Certification: I certify that SNF services are required to be given on an Inpatient basis because of the patients need for halfway care on a continuing basis for the condition(s) for which he/she received inpatient hospital services prior to his/her transfer to the SNF. SNF inpatient care is necessary for the following reasons
== END 2017-09-06 15:18 | DRG 65 ==
LOC: ED 16:41 → MED 18:54
PROVIDERS: ADMIT Emergency Medicine; ATTEND Internal Medicine